=== PATIENT | female | born 1960 | race Caucasian/White ===

== ENCOUNTER 2020-05-12 19:19 | Observation (INO) | payer OTHER ==
[~2020-05-12] VITALS: Ht 160 cm; Wt 85.3 kg
[~2020-05-12 19:19] MED LIST: BACTRIM DS TAB1 EACH PO; CIPROFLOXACIN500 M1 PO; CYCLOBENZAPRINE10 MG PO; NOHOMEMEDICATIONS; NORCO 5-325 TA1 EACH PO
[2020-05-12 19:29] VITALS: BP 195/78
[2020-05-12 19:41] LABS: ABSOLUTE BASOPHILS 0.1 thou/uL (0.0-0.2); ABSOLUTE EOSINOPHILS 0.1 thou/uL (0.0-0.7); ABSOLUTE LYMPHOCYTES 1.9 thou/uL (0.8-5.3); ABSOLUTE MONOCYTES 0.6 thou/uL (0.0-1.2); ABSOLUTE NEUTROPHILS 4.2 thou/uL (1.6-8.1); BASOPHILS 1.4 %; EOSINOPHILS 1.1 %; HEMATOCRIT 45.2 % (37.0-47.0); HEMOGLOBIN 15.2 gm/dL (12.0-15.0); LYMPHOCYTES 27.9 %; MCH 29.5 pg (26.0-34.0); MCHC 33.6 g/dL (28.0-37.0); MCV 87.8 fL (80.0-100.0); MONOCYTES 8.5 %; NUCLEATED RBCS 0 /100WBC; PLATELET COUNT* 195 thou/uL (150-400); POLYS 61.1 %; RBC 5.15 mil/uL (4.20-5.00); RDW-CV 13.5 % (10.5-14.5); WBC 6.8 thou/uL (4.0-11.0)
[2020-05-12 19:52] LABS: CALCIUM 9.3 mg/dL (8.5-10.1); CREATININE 0.9 mg/dL (0.6-1.3); POTASSIUM 3.8 mmol/L (3.5-5.1)
[2020-05-12 19:55] LABS: APTT 30.7 Seconds (25.0-31.3); PROTIME 10.7 Seconds (9.20-11.50)
[2020-05-12 20:02] LABS: ALBUMIN 4.3 g/dL (3.4-5.0); TOTAL BILIRUBIN 0.8 mg/dL (<0.1-1.0); TOTAL PROTEIN 7.7 g/dL (6.4-8.2)
[2020-05-12 22:30] VITALS: BP 164/76
[2020-05-12 23:15] VITALS: BP 159/82
[2020-05-13 03:45] VITALS: BP 127/61
[2020-05-13] MEDS ORDERED: CALCIUM500 MG PO (08:25)
[2020-05-13 08:34] VITALS: BP 145/90
[2020-05-13 10:46] VITALS: BP 145/90
--- NOTE | 2020-05-13 11:38 | EKG ---
[place] [address] ELECTROCARDIOGRAM REPORT Name: MARYBETH MCKEON Dougie Room: [address]#: [id number] Admission: 05/12/20 Attend Phys: Ricardo Lopez, Discharge: Date of : 56 Date of Service: 05/12/201924 Report #: [id number] THIS REPORT FOR: //name// [facility] ED Test Date: 2020-05-12 Test Time: 19:25:31 Pat Name: MARYBETH MCKEON Department: Room: 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
--- NOTE | 2020-05-13 11:42 | EKG ---
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
--- NOTE | 2020-05-13 14:14 | EXE ---
[place] [address] STRESS ECHOCARDIOGRAM Name: MARYBETH MCKEON Room: [address]#: [id number] Admission: 05/12/20 Attend Phys: Ricardo Lopez, Discharge: Date of : 56 Date of Service: 05/13/20 1413 Report #: [id number] THIS REPORT FOR: cc: Anaid Bailey MD, Elizabeth MD Blick,Jean Marie Maloney MD [facility] ~ APPROVED REPORT Study performed: 05/13/2020 13:20:46 Exam: Stress Echocardiogram Indication: Chest pain Patient Location: In-Patient Stress Nurse: Beatrice Harris RN Supervising Physician: Jean Marie Montana MD Ht: 5 ft 3 in HR: 62 bpm BP: 156/83 mmHg Medical History Cardiac Risk Factors: FHX of CAD Procedure The patient underwent an Exercise Stress Test using the Andrew Protocol. Blood pressure, heart rate, and EKG were monitored. An Echocardiogram was performed by truck service technician in four stages in quad fashion. At peak stress, four selected images were obtained and placed side by side with resting images for comparison. Stress Test Details Stress Test: Exercise stress testing was performed using a Andrew protocol. HR Resting HR: 62 bpm Max Heart Rate (APMHR): 159 bpm Max HR Achieved: 171 bpm Target HR (85% APMHR): 135 bpm % of APMHR: 107 Recovery HR: 93 bpm HR response to stress: Normal HR response to stress BP Resting BP: 156/83 mmHg Max BP: 199/101 mmHg Recovery BP: 126/77 mmHg BP response to stress: [place] [address] STRESS ECHOCARDIOGRAM Name: MCKEONMARYBETH Dougie Room: [address]#: [id number] Admission: 05/12/20 Attend Phys: Ricardo Lopez, Discharge: Date of : 56 Date of Service: 05/13/20 1413 Report #: [id number] stress. ECG Resting ECG: Sinus Rhythm Stress ECG: Sinus Tachycardia ST Change: Normal Maximum ST Deviation: 0 mm Arrhythmia: APC's Recovery ECG: Sinus Rhythm Recovery ST Change: Normal Recovery ST Deviation: 0 mm Recovery Arrhythmia: None Clinical Reason for Termination: Completed protocol, Maximal effort Exercise duration: 6 min 04 sec Highest Stage Achieved: Stage 2: 2.5 mph at 12% grade. Exercise capacity: 7.45 METs Overall Exercise Capacity for Age: Normal Pre-Stress Echo The resting Echocardiogram showed normal left ventricular contractility with an estimated Ejection Fraction of about 60-65%. Post-Stress Echo The stress Echocardiogram showed normal left ventricular contractility with an estimated Ejection Fraction of about >70%. Compared to rest, there were no stress-induced wall motion abnormalities. Conclusion Clinical Response: Non-ischemic Exercise Capacity: Average Stress ECG Response: Non-ischemic Stress Echo Images: Non-ischemic low risk stress echo for predicitng future cardiac events Other Information Study Quality: Good <Conclusion> low risk stress echo for predicitng future cardiac events <ELECTRONICALLY SIGNED> By: Jean Marie Montana MD, [facility] 05/13/20 1413 1413 1413 Jean Marie Montana MD, FAC /INF
--- NOTE | 2020-05-13 14:41 | CON ---
[address] [address] CONSULTATION Name: MARYBETH MCKEON Room: [address] M.R.#: [id number] Admission: 05/12/20 Attend Phys: Ricardo Lopez MD Discharge: Date of : 56 Report #: [id number] THIS REPORT FOR: //name// cc: Anaid Bailey MD, Elizabeth MD ~ THIS REPORT FOR: //name// CC: Anaid Lopez DATE OF SERVICE: 05/13/2020 CARDIOLOGY CONSULTATION HISTORY OF PRESENT ILLNESS: The patient is a 59-year-old white male, who I was asked to see in the hospital today after she complained of chest pain. The patient has no previous history of heart disease. She does state she had a treadmill in the past. She is not very active at this time. She notes for the past several months, she has had intermittent discomfort in her chest. She describes an aching in her chest that last just a few seconds. She also has occasional sharp pain in her chest, it goes into her left arm. It is not related to exertion or meals. She has had no trauma to her chest. She notes on Monday, the aching lasted all day. She finally went to urgent care yesterday and was sent over to the Emergency Room and admitted. She does note occasional shortness of breath when she exerts herself. She has had no edema. Denied any fever or cough. She does note that aching seemed to go away when she does exercise. She had no pain in her legs. She denied any fever. She has had no trauma to her chest. No associated diaphoresis or nausea. She has had no palpitations or syncope. Denies any history of heart murmur. PAST MEDICAL HISTORY: She has had no surgical procedures. She has a history of hypertension, diabetes, and hyperlipidemia. CURRENT MEDICATIONS: Consisted of calcium carbonate. ALLERGIES: SHE HAS A PREVIOUS INTOLERANCE TO CIPRO. FAMILY HISTORY: Her brother of a heart attack. SOCIAL HISTORY: She is . 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 Lives in [place]. No smoking or alcohol abuse. REVIEW OF SYSTEMS: She has had no history of strokes. She does have seasonal allergies. No history of asthma. She had mono years ago. No kidney disease. No cancer. No psychiatric illness. [place] [address] CONSULTATION Name: MARYBETH MCKEON Room: [address]#: [id number] Admission: 05/12/20 Attend Phys: Ricardo Lopez MD Discharge: Date of : 56 Report #: [id number] PHYSICAL EXAMINATION: GENERAL: Revealed a middle-aged female lying in bed. She appeared in no distress. VITAL SIGNS: Her blood pressure is 160/70 and pulse 60. She is afebrile. HEENT: She was anicteric. Conjunctivae pink. Mucous membranes moist. NECK: Veins do not appear distended. CHEST: Clear to auscultation. CARDIOVASCULAR: Regular rate and rhythm. No murmur or rub. ABDOMEN: Soft. EXTREMITIES: Had no edema. Posterior tibial pulses 2+ bilaterally. SKIN: Cool and dry. NEUROLOGIC: Nonfocal. DIAGNOSTIC DATA: ECG shows sinus bradycardia, early repolarization. Her workup in the Emergency Room, she had a portable chest x-ray which showed normal heart size and clear lung rios. LABORATORY DATA: Sodium 138, creatinine 0.9. Troponins were all 0.06. D-dimer 0.23. White blood cell count 6.8, hemoglobin 15.2. IMPRESSION AND RECOMMENDATIONS: 1. Chest pressure. Suspect noncardiac. No ECG changes or rise in cardiac enzymes. Recommend no further cardiac evaluation. 2. Ache in her chest. Suspect musculoskeletal. No history suggestive of GI source. 3. Seasonal allergies. <ELECTRONICALLY SIGNED> By: Jean Marie Montana MD, [facility] 05/13/20 1441 0856 [id number] Montana MD, [facility] /nt
[2020-05-13] MEDS ORDERED: NEXIUM20 MG PO (15:26)
[2020-05-13] MEDS ORDERED: IBUPROFEN 800800 M1 PO (15:27)
== END 2020-05-13 16:15 | disposition home or self-care (01) ==
LOC: M.ERS 19:19 → M.2W 21:46 → M.TBA-ER 21:46 → M.ERS 22:30 → M.2W 23:00
PROVIDERS: Personal Emergency Response Attendant; ADMIT Internal Medicine; ATTEND Internal Medicine
DX: Z03.818 Encounter for observation for suspected exposure to other biological agents ruled out (principal); R07.89 Other chest pain; E66.9 Obesity, unspecified; Z68.33 Body mass index [BMI] 33.0-33.9, adult

== ENCOUNTER 2021-10-19 16:25 | Emergency (ER) | payer OTHER ==
[~2021-10-19] VITALS: Ht 152.4 cm; Wt 81.7 kg
[~2021-10-19 16:25] MED LIST changes: +CALCIUM500 MG PO; +IBUPROFEN 800800 M1 PO; +NEXIUM20 MG PO
[2021-10-19 20:57] LABS: ABSOLUTE LYMPHOCYTES 1.1 thou/uL (0.8-5.3); ABSOLUTE MONOCYTES 0.4 thou/uL (0.0-1.2); ABSOLUTE NEUTROPHILS 2.7 thou/uL (1.6-8.1); BASOPHILS 0.6 %; EOSINOPHILS 0.6 %; HEMATOCRIT 52.8 % (37.0-47.0); HEMOGLOBIN 17.8 gm/dL (12.0-15.0); LYMPHOCYTES 26.4 %; MCH 29.5 pg (26.0-34.0); MCHC 33.7 g/dL (28.0-37.0); MCV 87.6 fL (80.0-100.0); MONOCYTES 8.7 %; MPV 9.8 fl. (7.2-11.1); NUCLEATED RBCS 0 /100WBC; PLATELET COUNT* 226 thou/uL (150-400); POLYS 63.7 %; RBC 6.03 mil/uL (4.20-5.00); RDW-CV 13.6 % (10.5-14.5); WBC 4.3 thou/uL (4.0-11.0)
[2021-10-19 21:06] LABS: CALCIUM 9.5 mg/dL (8.5-10.1); CREATININE 1.1 mg/dL (0.6-1.3); POTASSIUM 3.1 mmol/L (3.5-5.1)
[2021-10-19 21:10] LABS: TOTAL BILIRUBIN 0.3 mg/dL (<0.1-1.0); TOTAL PROTEIN 8.3 g/dL (6.4-8.2)
[2021-10-19 22:38] LABS: URINE BILIRUBIN NEGATIVE (Negative); URINE BLOOD TRACE (Negative); URINE CLARITY CLEAR; URINE COLOR YELLOW; URINE GLUCOSE-RANDOM NEGATIVE (Negative); URINE KETONES NEGATIVE (Negative); URINE NITRITE-REFLEX NEGATIVE (Negative); URINE PROTEIN NEGATIVE (Negative); URINE SPECIFIC GRAVITY <= 1.005 (1.005-1.030); URINE UROBILINOGEN 0.2 E.U./dl (0.2-1.0)
[2021-10-19 22:45] LABS: URINE LEUKOCYTES-REFLEX 2+ (Negative)
[2021-10-19 22:54] LABS: BACTERIA-REFLEX 1-9 Few /HPF (None Seen); CASTS None Seen /LPF (None Seen); CRYSTALS None Seen /LPF (None Seen); SQUAMOUS >10 Many /LPF (0-3); URINE RBC 0-2 Rare /HPF (0-2); URINE WBC-REFLEX 6-15 Few /HPF (0-5)
[2021-10-20 00:58] VITALS: BP 150/78
--- NOTE | 2021-10-20 09:02 | EKG ---
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: : 1960 Requested By: Renetta Seth Order Number: [id number] MD: Jean Marie Montana Measurements Intervals [place] Rate: 64 P: 46 PA: 144 QRS: 14 QRSD: 100 T: 31 QT: 400 QTc: 413 Interpretive Statements Sinus rhythm Compared to ECG 05/13/2020 08:32:25 Sinus bradycardia no longer present Electronically Signed On 10-20-2021 9:02:31 OCC THERAPIST by Jean Marie Montana [email or web address] <ELECTRONICALLY SIGNED> By: Jean Marie Montana MD, [facility] 10/20/21901 51 51 Jean Marie Montana MD, [facility] /EPI
== END 2021-10-20 00:59 | disposition home or self-care (01) ==
LOC: M.ERS 16:25
PROVIDERS: Nurse Practitioner Family
DX: K92.1 Melena (principal); Z20.822 Contact with and (suspected) exposure to COVID-19; Z88.1 Allergy status to other antibiotic agents; Z79.899 Other long term (current) drug therapy